=== PATIENT | male | born 1975 | race Two or more races ===

== ENCOUNTER 2017-04-23 13:54 | Emergency (ER) | payer SELFPAY | END 2017-04-23 14:37 | disposition home or self-care (01) | LOC: ER 13:54 | DX: S39.012A Strain of muscle, fascia and tendon of lower back, initial encounter (principal); X58.XXXA Exposure to other specified factors, initial encounter; Y93.89 Activity, other specified; Y92.89 Other specified places as the place of occurrence of the external cause; Y99.8 Other external cause status | CPT/HCPCS: 99283 ==

== ENCOUNTER 2018-10-10 01:04 | Emergency (ER) | payer SELFPAY ==
[~2018-10-10] VITALS: Ht 175.3 cm; Wt 111.6 kg
[~2018-10-10 01:04] MED LIST: HYDR-3164 PO; IBUP-1060 PO
[2018-10-10 01:06] VITALS: BP 160/104
[2018-10-10] MEDS ORDERED: CLIN300C8 PO (01:21)
[2018-10-10] MEDS ORDERED: cefTRIAXone IM 1 GM VIAL IM ONE (02:00)
--- NOTE | 2018-10-10 02:02 | PHYS DOC ---
Past Medical History Past Medical History: No Pertinent History Past Surgical History: No Surgical History Alcohol Use: None Drug Use: None Adult General Chief Complaint Chief Complaint: SKIN PROBLEM HPI HPI Patient is a 43 year old [M P/W RASH X THREE DAYS LEFT LEG STARTED OUT ITCHY DOESNT KNOW IF MAYBE HE IS EXPOSED TO POISON ADINA HE IS NOT SURE OVER THE THREE DAYS INCREASINGLY RED AND WARM UP TO HIS THIGH BG 96 IN ER NO PMH NO FEVER ENERGY LEVEL IS FINE JUST A LOT OF ITCHING AND MILD DULL NONRADIATING PAIN. Review of Systems Review of Systems Constitutional: Denies fever or chills [] Eyes: Denies change in visual acuity, redness, or eye pain [] HENT: Denies nasal congestion or sore throat [] Respiratory: Denies cough or shortness of breath [] Cardiovascular: No additional information not addressed in HPI [] GI: Denies abdominal pain, nausea, vomiting, bloody stools or diarrhea [] : Denies dysuria or hematuria [] Musculoskeletal: Denies back pain or joint pain [] Integument: Denies rash or skin lesions [] Neurologic: Denies headache, focal weakness or sensory changes [] Endocrine: Denies polyuria or polydipsia [] All other systems were reviewed and found to be within normal limits, except as documented in this note. Current Medications Current Medications Current Medications Medications (Trade) Dose Ordered Sig/Neida Start Time Stop Time Status Last Admin Dose Admin Ceftriaxone Sodium (Rocephin Im) 1 gm 1X ONCE 10/10/18 02:00 10/10/18 02:01 DC 10/10/18 01:40 1 GM Allergies Allergies Allergies Coded Allergies Type Severity Reaction Last Updated Verified No Known Drug Allergies 10/10/18 No Physical Exam Physical Exam Constitutional: Well developed, well nourished, no acute distress, non-toxic appearance. [] HENT: Normocephalic, atraumatic, bilateral external ears normal, oropharynx moist, no oral exudates, nose normal. [] Eyes: PERRLA, EOMI, conjunctiva normal, no discharge. [] Neck: Normal range of motion, no tenderness, supple, no stridor. [] Abdomen: Bowel sounds normal, soft, no tenderness, no masses, no pulsatile masses. [] Skin THERE IS SIG ERYTHEMA DIFFUSE FROM CALF UP TO ANTERIOR THIGH, APPEARS FAIRLY SUPERFICIAL MILD TTP NOTED, NO BULLAE NO FLUCTUANCE. DISTAL FUNCTION INTACT SCATTERED EXCORIATED SCABS NOTED ON B/L LOWER EXT, SOME RAISED PATCHES POSSIBLY C/W CONTACT DERMATITIS Back: No tenderness, no CVA tenderness. [] Extremities: No tenderness, no cyanosis, no clubbing, ROM intact, no edema. [] Neurologic: Alert and oriented X 3, normal motor function, normal sensory function, no focal deficits noted. [] Psychologic: Affect normal, judgement normal, mood normal. [] Current Patient Data Vital Signs Vital Signs Date Time Temp Pulse Resp B/P (MAP) Pulse Ox O2 Delivery O2 Flow Rate FiO2 10/10/18 01:06 98.1 64 16 160/104 (122) 99 Room Air 98.1 Lab Values Laboratory Tests Test 10/10/18 01:19 Glucose (Fingerstick) 96 mg/dL (70-99) EKG EKG [] Radiology/Procedures Radiology/Procedures [] Course & Med Decision Making Course & Med Decision Making Pertinent Labs and Imaging studies reviewed. (See chart for details) []43-year-old male with lower extremity redness suspect cellulitis does have some evidence of some excoriated scabbed over lesions that could be the site of break in skin. I think so far it is fairly superficial appearing we marked the skin blood sugar was 96 we give IM ceftriaxone and I asked him to come back in 24-48 hours should he not have improving symptoms. Prescription for clindamycin was provided as well Dragon Disclaimer Dragon Disclaimer This electronic medical record was generated, in whole or in part, using a voice recognition dictation system. Departure Departure Impression: Primary Impression: Cellulitis Disposition: 01 HOME, SELF-CARE Condition: STABLE Patient Instructions: Cellulitis, [id number] Scripts Clindamycin Hcl (CLINDAMYCIN HCL) 300 Mg Capsule 1 CAP PO TID, #30 CAP Prov: SUKUMAR GONZALEZ MD 10/10/18 SUKUMAR GONZALEZ MD Oct 10, 2018 02:02
== END 2018-10-10 02:03 | disposition home or self-care (01) ==
LOC: ER 01:04
DX: L03.116 Cellulitis of left lower limb (principal); L03.115 Cellulitis of right lower limb
CPT/HCPCS: 82962; 96372; 99283; J0696

== ENCOUNTER 2018-11-16 00:18 | Emergency (ER) | payer SELFPAY ==
[~2018-11-16] VITALS: Ht 175.3 cm; Wt 108.9 kg
[~2018-11-16 00:18] MED LIST changes: +CLIN300C8 PO
[2018-11-16 00:23] VITALS: BP 122/73
[2018-11-16] MEDS ORDERED: IPRATRPIUM/ALBUTEROL 0.5/2.5MG 3 ML NEBU. NEB ONE (00:30)
[2018-11-16] MEDS ORDERED: predniSONE 20 MG TABLET PO ONE (00:30)
[2018-11-16] MEDS ORDERED: ALBU2.5V8 IH (00:47)
[2018-11-16] MEDS ORDERED: PRED20TA PO (00:47)
--- NOTE | 2018-11-16 00:47 | PHYS DOC ---
Past Medical History Past Medical History: No Pertinent History Past Surgical History: No Surgical History Alcohol Use: None Drug Use: None Adult General Chief Complaint Chief Complaint: COUGH HPI HPI Patient is a 43-year-old male who is otherwise healthy presents with several day history of cough and congestion. He states the cough got worse tonight at work. He states he has some chest pain with coughing. His work told him he needed to go home and get evaluated by a physician so he came here. He denies any fever chills or sweats. He denies any hemoptysis. He has not been on any antibiotics and he has not taken any cough medicine at home to help with the symptoms.[] Review of Systems Review of Systems Constitutional: Denies fever or chills [] Eyes: Denies change in visual acuity, redness, or eye pain [] HENT: Denies nasal congestion or sore throat [] Respiratory: Per history of present illness[] Cardiovascular: No additional information not addressed in HPI [] GI: Denies abdominal pain, nausea, vomiting, bloody stools or diarrhea [] : Denies dysuria or hematuria [] Musculoskeletal: Denies back pain or joint pain [] Integument: Denies rash or skin lesions [] Neurologic: Denies headache, focal weakness or sensory changes [] Endocrine: Denies polyuria or polydipsia [] All other systems were reviewed and found to be within normal limits, except as documented in this note. Current Medications Current Medications Current Medications Medications (Trade) Dose Ordered Sig/Neida Start Time Stop Time Status Last Admin Dose Admin Albuterol/ Ipratropium (Duoneb) 3 ml 1X ONCE 11/16/18 00:30 11/16/18 00:32 DC 11/16/18 00:40 3 ML Prednisone (Prednisone) 60 mg 1X ONCE 11/16/18 00:30 11/16/18 00:32 DC 11/16/18 00:37 60 MG Allergies Allergies Allergies Coded Allergies Type Severity Reaction Last Updated Verified No Known Drug Allergies 10/10/18 No Physical Exam Physical Exam Constitutional: Well developed, well nourished, no acute distress, non-toxic appearance. [] HENT: Normocephalic, atraumatic, bilateral external ears normal, oropharynx moist, no oral exudates, nose normal. [] Eyes: PERRLA, EOMI, conjunctiva normal, no discharge. [] Neck: Normal range of motion, no tenderness, supple, no stridor. [] Cardiovascular:Heart rate regular rhythm, no murmur [] Lungs & Thorax: Mild apical wheezing no rales[] Abdomen: Bowel sounds normal, soft, no tenderness, no masses, no pulsatile masses. [] Skin: Warm, dry, no erythema, no rash. [] Back: No tenderness, no CVA tenderness. [] Extremities: No tenderness, no cyanosis, no clubbing, ROM intact, no edema. [] Neurologic: Alert and oriented X 3, normal motor function, normal sensory function, no focal deficits noted. [] Psychologic: Affect normal, judgement normal, mood normal. [] Current Patient Data Vital Signs Vital Signs Date Time Temp Pulse Resp B/P (MAP) Pulse Ox O2 Delivery O2 Flow Rate FiO2 11/16/18 00:38 98 Room Air 11/16/18 00:23 98.0 62 18 122/73 (89) 98.0 EKG EKG [] Interpretation Time: EKG: Normal sinus rhythm rate of [address]-T changes Radiology/Procedures Radiology/Procedures [] Course & Med Decision Making Course & Med Decision Making Pertinent Labs and Imaging studies reviewed. (See chart for details) [ED course: Evaluation reveals a healthy 43-year-old male with some bronchitis type symptoms. He was given 60 of prednisone and a DuoNeb which did help alleviate his symptoms. I believe the patient is safe for discharge home. I will start him on an albuterol metered-dose inhaler and some steroids.] Dragon Disclaimer Dragon Disclaimer This electronic medical record was generated, in whole or in part, using a voice recognition dictation system. Departure Departure Impression: Primary Impression: Bronchitis Disposition: 01 HOME, SELF-CARE Condition: IMPROVED Referrals: NO PCP (PCP) Patient Instructions: Acute Bronchitis Additional Instructions: Take medication as directed. Return to the emergency department with any new or concerning symptoms Scripts Albuterol Sulfate (PROVENTIL HFA INHALER) 6.7 Gm Hfa.aer.ad 2 PUFF IH PRN Q4HRS PRN for FOR ASTHMA, #1 INHALER 0 Refills Prov: ALLEGRA CARRENO DO 11/16/18 Prednisone (PREDNISONE) 20 Mg Tablet 3 TAB PO DAILY PRN for COUGH, #15 TAB Prov: ALLEGRA CARRENO DO 11/16/18 ALLEGRA CARRENO DO Nov 16, 2018 00:47
--- NOTE | 2018-11-16 07:15 | EKG ---
[facility] [address] [place] [address] Test Date: 2018-11-16 Test Time: 00:21:19 Pat Name: HECTOR GARCIA Department: Room: Gender: M [employer] Teacher: : 1975 Requested By: ALLEGRA CARRENO Order Number: [id number] Reading MD: Raffi Smith MD Measurements Intervals [place] Rate: 56 P: 0 WY: 146 QRS: 58 QRSD: 88 T: 14 QT: 418 QTc: 406 Interpretive Statements SINUS RHYTHM Electronically Signed On 11-16-2018 8:16:15 CDT by Raffi Smith MD
== END 2018-11-16 01:06 | disposition home or self-care (01) ==
LOC: ER 00:18
DX: J40 Bronchitis, not specified as acute or chronic (principal)
CPT/HCPCS: 93005; 94640; 99283; J7512; J7620

== ENCOUNTER 2019-04-30 14:23 | Emergency (ER) | payer OTHER ==
[~2019-04-30] VITALS: Ht 175.3 cm; Wt 95.0 kg
[~2019-04-30 14:23] MED LIST changes: +PRED20TA PO; +PROVENTIL HFA6.7 GM IH
[2019-04-30] MEDS ORDERED: ONDANSETRON PF 4 MG/2 ML VIAL. IV ONE (15:30)
[2019-04-30] MEDS ORDERED: IV NORMAL SALINE 1000ML BAG 1,000 ML IV ONE (15:30)
[2019-04-30] MEDS ORDERED: DICYCLOMINE HCL 10 MG CAPSULE PO STA (15:30)
--- NOTE | 2019-04-30 15:34 | PHYS DOC ---
Past Medical History Past Medical History: No Pertinent History Past Surgical History: No Surgical History Smoking Status: Current Some Day Smoker Alcohol Use: None Drug Use: None Adult General Chief Complaint Chief Complaint: DIARRHEA HPI HPI Patient is a 43 year old male who presents with nausea, vomiting, diarrhea that started yesterday. Patient associated symptom includes feeling hot and cold. Patient is also been having some abdominal cramping is intermittent in nature. The patient rates the cramping is 9 out of 10 in severity and crampy. Denies any additional symptoms. Complete ROS were reviewed and found to be within normal limits, except as documented in the HPI Current Medications Current Medications Current Medications Medications (Trade) Dose Ordered Sig/Neida Start Time Stop Time Status Last Admin Dose Admin Dicyclomine HCl (Bentyl) 10 mg 1X STAT 04/30/19 15:30 04/30/19 15:33 DC 04/30/19 15:53 10 MG Ondansetron HCl (Zofran) 4 mg 1X ONCE 04/30/19 15:30 04/30/19 15:33 DC 04/30/19 15:54 4 MG Sodium Chloride 1,000 ml @ 1,000 mls/hr 1X ONCE 04/30/19 15:30 04/30/19 16:29 04/30/19 15:54 1,000 MLS/HR Allergies Allergies Allergies Coded Allergies Type Severity Reaction Last Updated Verified No Known Drug Allergies 10/10/18 No Physical Exam Physical Exam Constitutional: Well developed, well nourished, no acute distress, non-toxic appearance. [] HENT: Normocephalic, atraumatic, bilateral external ears normal, oropharynx moist, no oral exudates, nose normal. [] Eyes: PERRLA, EOMI, conjunctiva normal, no discharge. [] Neck: Normal range of motion, no tenderness, supple, no stridor. [] Cardiovascular:Heart rate regular rhythm, no murmur [] Lungs & Thorax: Bilateral breath sounds clear to auscultation [] Abdomen: Bowel sounds normal, soft, no tenderness, no masses, no pulsatile masses. [] Skin: Warm, dry, no erythema, no rash. [] Neurologic: Alert and oriented X 3, normal motor function, normal sensory function, no focal deficits noted. [] Psychologic: Affect normal, judgement normal, mood normal. [] Current Patient Data Vital Signs Vital Signs Date Time Temp Pulse Resp B/P (MAP) Pulse Ox O2 Delivery O2 Flow Rate FiO2 04/30/19 15:17 97.8 65 14 132/77 (95) 100 Room Air 97.8 Lab Values Laboratory Tests Test 04/30/19 15:35 White Blood Count 5.1 x10^3/uL (4.0-11.0) Red Blood Count 5.52 x10^6/uL (4.30-5.70) Hemoglobin 16.2 g/dL (13.0-17.5) Hematocrit 47.3 % (39.0-53.0) Mean Corpuscular Volume 86 fL (79-100) Mean Corpuscular Hemoglobin 29 pg (25-35) Mean Corpuscular Hemoglobin Concent 34 g/dL (31-37) Red Cell Distribution Width 13.1 % (11.5-14.5) Platelet Count 209 x10^3/uL (140-400) Neutrophils (%) (Auto) 57 % (31-73) Lymphocytes (%) (Auto) 26 % (24-48) Monocytes (%) (Auto) 14 % (0-9) H Eosinophils (%) (Auto) 2 % (0-3) Basophils (%) (Auto) 1 % (0-3) Neutrophils # (Auto) 2.9 x10^3/uL (1.8-7.7) Lymphocytes # (Auto) 1.3 x10^3/uL (1.0-4.8) Monocytes # (Auto) 0.7 x10^3/uL (0.0-1.1) Eosinophils # (Auto) 0.1 x10^3/uL (0.0-0.7) Basophils # (Auto) 0.0 x10^3/uL (0.0-0.2) Urine Collection Type Unknown Urine Color Yellow Urine Clarity Clear Urine pH 6.0 Urine Specific [place] >=1.030 Urine Protein Negative mg/dL (NEG-TRACE) Urine Glucose (UA) Negative mg/dL (NEG) Urine Ketones (Stick) Negative mg/dL (NEG) Urine Blood Small (NEG) Urine Nitrite Negative (NEG) Urine Bilirubin Negative (NEG) Urine Urobilinogen Dipstick 1.0 mg/dL (0.2 mg/dL) Urine Leukocyte Esterase Negative (NEG) Urine RBC 1-2 /HPF (0-2) Urine WBC Occ /HPF (0-4) Urine Squamous Epithelial Cells Few /LPF Urine Bacteria 0 /HPF (0-FEW) Urine Mucus Marked /LPF Sodium Level 139 mmol/L (136-145) Potassium Level 3.6 mmol/L (3.5-5.1) Chloride Level 103 mmol/L (98-107) Carbon Dioxide Level 28 mmol/L (21-32) Anion Gap 8 (6-14) Blood Urea Nitrogen 17 mg/dL (8-26) Creatinine 1.2 mg/dL (0.7-1.3) Estimated GFR (Cockcroft-Gault) 66.4 BUN/Creatinine Ratio 14 (6-20) Glucose Level 89 mg/dL (70-99) Calcium Level 8.3 mg/dL (8.5-10.1) L Total Bilirubin 0.3 mg/dL (0.2-1.0) Aspartate Amino Transferase (AST) 22 U/L (15-37) Alanine Aminotransferase (ALT) 29 U/L (16-63) Alkaline Phosphatase 67 U/L (46-116) Total Protein 7.4 g/dL (6.4-8.2) Albumin 3.6 g/dL (3.4-5.0) Albumin/Globulin Ratio 0.9 (1.0-1.7) L Lipase 89 U/L (73-393) Laboratory Tests 04/30/19 15:35 Laboratory Tests 04/30/19 15:35 EKG EKG [] Radiology/Procedures Radiology/Procedures [] Course & Med Decision Making Course & Med Decision Making Pertinent Labs and Imaging studies reviewed. (See chart for details) Will get labs, and give supportive care. The patient appears like he likely has been suffering from gastroenteritis. Will d/c home with Marcos and Mireya. Dragon Disclaimer Dragon Disclaimer This electronic medical record was generated, in whole or in part, using a voice recognition dictation system. Departure Departure Impression: Primary Impression: Nausea & vomiting Additional Impression: Diarrhea in adult patient Disposition: HOME, SELF-CARE Condition: STABLE Referrals: NO PCP (PCP) Patient Instructions: Viral Gastroenteritis Additional Instructions: Thank you for visiting [facility]. We appreciate you trusting us with your care. If any additional problems come up don't hesitate to return to visit us. Please follow up with your primary care provider so they can plan additional care if needed and know about the problem that you had. If symptoms worsen come back to the Emergency Department. Any concerning symptoms that start such as chest pain, shortness of air, weakness or numbness on one side of the body, running high fevers or any other concerning symptoms return to the ER. Scripts Ondansetron (ONDANSETRON ODT) 4 Mg Tab.rapdis 1 TAB PO PRN Q6-8HRS PRN for NAUSEA, #20 TAB Prov: KEO READ APRN 04/30/19 Dicyclomine Hcl (DICYCLOMINE HCL) 10 Mg Capsule 1 CAP PO PRN Q6HRS PRN for PAIN, #20 CAP 0 Refills Prov: KEO READ APRN 04/30/19 Problem Qualifiers Primary Impression: Nausea & vomiting Vomiting type: unspecified Vomiting Intractability: unspecified Qualified Codes: R11.2 - Nausea with vomiting, unspecified KEO READ APRN Apr 30, 2019 15:33
[2019-04-30 15:55] LABS: BASO % 1 % (0-3); EOS # 0.1 x10^3/uL (0.0-0.7); EOS % 2 % (0-3); HEMATOCRIT 47.3 % (39.0-53.0); HEMOGLOBIN 16.2 g/dL (13.0-17.5); LYMPH # 1.3 x10^3/uL (1.0-4.8); LYMPH % 26 % (24-48); MEAN CORPUSCULAR HEMOGLOBIN 29 pg (25-35); MEAN CORPUSCULAR HGB CONC 34 g/dL (31-37); MEAN CORPUSCULAR VOLUME 86 fL (79-100); MONO # 0.7 x10^3/uL (0.0-1.1); MONO % 14 % (0-9); NEUT # 2.9 x10^3/uL (1.8-7.7); NEUT % 57 % (31-73); PLATELET COUNT 209 x10^3/uL (140-400); RED BLOOD COUNT 5.52 x10^6/uL (4.30-5.70); RED CELL DISTRIBUTION WIDTH 13.1 % (11.5-14.5); WHITE BLOOD COUNT 5.1 x10^3/uL (4.0-11.0)
[2019-04-30 15:56] LABS: BILIRUBIN,URINE NEGATIVE (NEG); CLARITY,URINE CLEAR; COLOR,URINE YELLOW; NITRITE,URINE NEGATIVE (NEG); PROTEIN,URINE NEGATIVE (NEG-TRACE)
[2019-04-30 16:03] LABS: CALCIUM 8.3 mg/dL (8.5-10.1); CREATININE 1.2 mg/dL (0.7-1.3); GFR 66.4; POTASSIUM 3.6 mmol/L (3.5-5.1)
[2019-04-30 16:06] LABS: BACTERIA,URINE 0 /HPF (0-FEW); SQUAMOUS EPITHELIAL CELL,UR FEW /LPF; WBC,URINE OCC /HPF (0-4)
[2019-04-30 16:09] LABS: ALBUMIN 3.6 g/dL (3.4-5.0); ALBUMIN/GLOBULIN RATIO 0.9 (1.0-1.7); TOTAL BILIRUBIN 0.3 mg/dL (0.2-1.0); TOTAL PROTEIN 7.4 g/dL (6.4-8.2)
[2019-04-30] MEDS ORDERED: DICY10CA3 PO (16:15)
[2019-04-30] MEDS ORDERED: ONDA4TAB12 PO (16:15)
[2019-04-30 16:43] VITALS: BP 124/60
== END 2019-04-30 16:44 | disposition home or self-care (01) ==
LOC: ER 14:23
DX: R11.2 Nausea with vomiting, unspecified (principal); R19.7 Diarrhea, unspecified; R10.9 Unspecified abdominal pain; F17.200 Nicotine dependence, unspecified, uncomplicated
CPT/HCPCS: 36415; 80053; 81001; 83690; 85025; 96361; 96374; 99284; J2405; J7030

== ENCOUNTER 2019-05-25 18:49 | Emergency (ER) | payer OTHER ==
[~2019-05-25] VITALS: Ht 175.3 cm; Wt 95.5 kg
[~2019-05-25 18:49] MED LIST changes: +DICY10CA3 PO; +ONDA4TAB12 PO
[2019-05-25 19:25] VITALS: BP 132/75
[2019-05-25] MEDS ORDERED: AMOX1TAB61 PO (20:25)
--- NOTE | 2019-05-25 20:25 | PHYS DOC ---
Past Medical History Past Medical History: No Pertinent History Past Surgical History: No Surgical History Smoking Status: Never Smoker Alcohol Use: None Drug Use: None Adult General Chief Complaint Chief Complaint: ABSCESS HPI HPI Patient is a 43 year old male who presents with rectal pain that started yest erday. The patient denies any fever. The patient reports his pain is 8 out of 10 in severity and sharp. Patient states it hurts when he puts pressure on to the area. Patient reports that he has a boil on his rectum. Complete ROS were reviewed and found to be within normal limits, except as documented in the [facility] Allergies Allergies Allergies Coded Allergies Type Severity Reaction Last Updated Verified No Known Drug Allergies 10/10/18 No Physical Exam Physical Exam Constitutional: Well developed, well nourished, no acute distress, non-toxic appearance. [] HENT: Normocephalic, atraumatic, bilateral external ears normal, oropharynx moist, no oral exudates, nose normal. [] Skin: Rectum has a visible abscess that disappears in the anus and is draining fluid. Neurologic: Alert and oriented X 3, normal motor function, normal sensory function, no focal deficits noted. [] Psychologic: Affect normal, judgement normal, mood normal. [] Current Patient Data Vital Signs Vital Signs Date Time Temp Pulse Resp B/P (MAP) Pulse Ox O2 Delivery O2 Flow Rate FiO2 05/25/19 19:25 98.2 77 16 132/75 (94) 97 Room Air 98.2 EKG EKG [] Radiology/Procedures Radiology/Procedures [] Course & Med Decision Making Course & Med Decision Making Pertinent Labs and Imaging studies reviewed. (See chart for details) Vitals are stable. Patient is a-febrile. Abscess is not a candidate for I/D in ER due to location. Is already draining. Will refer to Gen Surgery and place on antibiotics. Dragon Disclaimer Dragon Disclaimer This electronic medical record was generated, in whole or in part, using a voice recognition dictation system. Departure Departure Impression: Primary Impression: Perianal abscess Disposition: 01 HOME, SELF-CARE Condition: STABLE Referrals: NO PCP (PCP) FRANTZ CARRASCO MD Patient Instructions: Leticia-Rectal Abscess Additional Instructions: Thank you for visiting [facility]. We appreciate you trusting us with your care. If any additional problems come up don't hesitate to return to visit us. Please follow up with your primary care provider so they can plan additional care if needed and know about the problem that you had. If symptoms worsen come back to the Emergency Department. Any concerning symptoms that start such as chest pain, shortness of air, weakness or numbness on one side of the body, running high fevers or any other concerning symptoms return to the ER. You have been prescribed an antibiotic today to help fight your infection. Please take all of the antibiotic as directed. If after 48 hours the infection is not improving, please return for more care. If the infection worsens, return to ER for additional care. Scripts Amoxicillin/Potassium Clav (AUGMENTIN 875-125 TABLET) 1 Each Tablet 1 TAB PO BID for 10 Days, #20 TAB 0 Refills Prov: KEO READ APRN 05/25/19 KEO READ APRN May 25, 2019 20:25
== END 2019-05-25 20:40 | disposition home or self-care (01) ==
LOC: ER 18:49
DX: K61.0 Anal abscess (principal)
CPT/HCPCS: 99283

== ENCOUNTER 2019-08-18 23:25 | Emergency (ER) | payer OTHER ==
[~2019-08-18] VITALS: Ht 175.3 cm; Wt 107.0 kg
[~2019-08-18 23:25] MED LIST changes: +AMOX1TAB61 PO
[2019-08-18 23:33] VITALS: BP 116/87
[2019-08-19] MEDS ORDERED: HYDROcodone/APAP 7.5/325MG 1 TAB TABLET PO ONE (00:30)
[2019-08-19] MEDS ORDERED: HYDR-3164 PO (01:15)
[2019-08-19] MEDS ORDERED: DICL50TA4 PO (01:15)
--- NOTE | 2019-08-19 01:15 | PHYS DOC ---
Past Medical History Past Medical History: No Pertinent History Past Surgical History: No Surgical History Smoking Status: Never Smoker Alcohol Use: None Drug Use: None General Adult EDM: Chief Complaint: RIB PAIN HPI: HPI: Patient is a 43 year old male who presents with complaint of left rib pain. Patient had been out playing basketball and another player ran into his chest with that shoulder. Patient states that he now has pain in his lower ribs. He states that it is painful to breathe. He denies any nausea or vomiting. Patient states that injury occurred about an hour prior to arrival. [] Review of Systems: Review of Systems: Constitutional: Denies fever or chills. [] Respiratory: Denies cough or shortness of breath. [] Cardiovascular: Complains of left-sided chest wall pain. [] GI: Denies abdominal pain, nausea, vomiting or diarrhea. [] Neurologic: Denies headache, focal weakness or sensory changes. [] Heart Score: Risk Factors: Risk Factors: DM, Current or recent (<one month) smoker, HTN, HLP, family hi story of CAD, obesity. Risk Scores: Score 0 - 3: 2.5% MACE over next 6 weeks - Discharge Home Score 4 - 6: 20.3% MACE over next 6 weeks - Admit for Clinical Observation Score 7 - 10: 72.7% MACE over next 6 weeks - Early Invasive Strategies Current Medications: Current Medications Medications (Trade) Dose Ordered Sig/[facility] Start Time Stop Time Status Last Admin Dose Admin Acetaminophen/ Hydrocodone Bitart (Lortab 7.5/325) 1 tab 1X ONCE 08/19/19 00:30 08/19/19 00:31 DC 08/19/19 00:52 1 TAB Allergies: Allergies: Allergies Coded Allergies Type Severity Reaction Last Updated Verified No Known Drug Allergies 10/10/18 No Physical Exam: PE: Constitutional: Well developed, well nourished, no acute distress, non-toxic appearance. [] Neck: Normal range of motion, no tenderness, supple, no stridor. [] Cardiovascular: Regular rate and rhythm. There is reproducible tenderness along the left-sided lower anterior and anterior lateral rib margin [] Lungs & Thorax: Bilateral breath sounds clear to auscultation [] Abdomen: Bowel sounds normal, soft, no tenderness. [] Extremities: No tenderness, no cyanosis, no clubbing, ROM intact, no edema. [] Current Patient Data: Vital Signs: Vital Signs Date Time Temp Pulse Resp B/P (MAP) Pulse Ox O2 Delivery O2 Flow Rate FiO2 08/19/19 00:52 20 97 Room Air 08/18/19 23:33 98.2 80 116/87 (97) 98.2 EKG: EKG: [] Radiology/Procedures: Radiology/Procedures: [] Course & Med Decision Making: Course & Med Decision Making Pertinent Labs and Imaging studies reviewed. (See chart for details) [] Dragon Disclaimer: Dragon Disclaimer: This electronic medical record was generated, in whole or in part, using a voice recognition dictation system. Departure Departure Impression: Primary Impression: Contusion of rib on left side Qualified Codes: S20.212A - Contusion of left front wall of thorax, initial encounter Disposition: HOME, SELF-CARE Condition: STABLE Referrals: NO PCP (PCP) Patient Instructions: Rib Contusion Scripts Hydrocodone/Apap 5-325 (NORCO 5-325 TABLET) 1 Each Tablet 1-2 EACH PO PRN Q6HRS PRN for PAIN, #15 as needed for pain Prov: BRITTA SKINNER Jr. DO 08/19/19 Diclofenac Sodium (DICLOFENAC SODIUM) 50 Mg Tablet. 1 TAB PO BID PRN for PAIN, #20 TAB Prov: BRITTA SKINNER Jr. DO 08/19/19 BRITTA SKINNER Jr. DO August 19, 2019 01:15
--- NOTE | 2019-08-19 01:21 | RAD ---
EXAM: Frontal chest with 3 view left rib series. HISTORY: Left rib pain after injury. COMPARISON: None. FINDINGS: There are no displaced left rib fractures. There is no pneumothorax or pleural effusion. The there are no confluent infiltrates. The heart is not enlarged. IMPRESSION: 1. No displaced left rib fractures. Electronically signed by: Donya Quinn MD (08/19/2019 1:18 AM) [facility]
== END 2019-08-19 01:23 | disposition home or self-care (01) ==
LOC: ER 23:25
DX: S20.212A Contusion of left front wall of thorax, initial encounter (principal); W21.05XA Struck by basketball, initial encounter; Y93.89 Activity, other specified; Y92.89 Other specified places as the place of occurrence of the external cause; Y99.8 Other external cause status
CPT/HCPCS: 71101; 99283

== ENCOUNTER 2019-08-21 14:29 | Emergency (ER) | payer OTHER ==
[~2019-08-21 14:29] MED LIST changes: +DICL50TA4 PO
== END 2019-08-21 15:43 | disposition left against medical advice (07) ==
LOC: ER 14:29
DX: R07.81 Pleurodynia (principal); Z53.21 Procedure and treatment not carried out due to patient leaving prior to being seen by health care provider

== ENCOUNTER 2019-10-06 14:48 | Emergency (ER) | payer OTHER ==
[~2019-10-06] VITALS: Ht 175.3 cm; Wt 101.6 kg
[2019-10-06] MEDS ORDERED: FLUORESCEIN OPHTH TEST STRIP. OU ONE (17:00)
[2019-10-06] MEDS ORDERED: TETRACAINE 0.5% OPHTH SOLUTION 4ML BOTTLE. OS ONE (17:00)
[2019-10-06] MEDS ORDERED: ERYT1OIN6 OP (17:30)
--- NOTE | 2019-10-06 17:31 | PHYS DOC ---
Past Medical History Past Medical History: No Pertinent History Past Surgical History: No Surgical History Smoking Status: Never Smoker Alcohol Use: None Drug Use: None General Adult EDM: Chief Complaint: FOREIGN BODY/EYES HPI: HPI: Patient is a 44 year old male who presents with works for [employer] and when he was putting together a box a bag of sand was open and when he put the stand down into the box stomach came up and got into his left eye. He states that he rinsed out his eye with water at work. He states that it continues to hurt. He states that he can see out of the eye just fine. The left eye sclera is reddened and around the eye is reddened and 1+ swelling. Patient rates his pain a 8 out of 10. He states it is a burning itching pain. Patient states when he looks around with his eye it does not hurt. Review of Systems: Review of Systems: Constitutional: Denies fever or chills. [] Eyes: Denies change in visual acuity. Left eye redness and pain.[] HENT: Denies nasal congestion or sore throat. [] Respiratory: Denies cough or shortness of breath. [] Cardiovascular: Denies chest pain or edema. [] GI: Denies abdominal pain, nausea, vomiting, bloody stools or diarrhea. [] : Denies dysuria. [] Musculoskeletal: Denies back pain or joint pain. [] Integument: Denies rash. [] Neurologic: Denies headache, focal weakness or sensory changes. [] Endocrine: Denies polyuria or polydipsia. [] Lymphatic: Denies swollen glands. [] Psychiatric: Denies depression or anxiety. [] Heart Score: Risk Factors: Risk Factors: DM, Current or recent (<one month) smoker, HTN, HLP, family history of CAD, obesity. Risk Scores: Score 0 - 3: 2.5% MACE over next 6 weeks - Discharge Home Score 4 - 6: 20.3% MACE over next 6 weeks - Admit for Clinical Observation Score 7 - 10: 72.7% MACE over next 6 weeks - Early Invasive Strategies Current Medications: Current Medications Medications (Trade) Dose Ordered Sig/Neida Start Time Stop Time Status Last Admin Dose Admin Fluorescein Sodium (Ful-Magi) 2 strip 1X ONCE 10/06/19 17:00 10/06/19 17:01 DC 10/06/19 17:02 1 STRIP Tetracaine HCl (Tetracaine) 1 drop 1X ONCE 10/06/19 17:00 10/06/19 17:01 DC 10/06/19 17:02 1 DROP Allergies: Allergies: Allergies Coded Allergies Type Severity Reaction Last Updated Verified No Known Drug Allergies 10/10/18 No Physical Exam: PE: Constitutional: Well developed, well nourished, no acute distress, non-toxic appearance. [] HENT: Normocephalic, atraumatic, bilateral external ears normal, oropharynx moist, no oral exudates, nose normal. [] Eyes: PERRLA, EOMI, conjunctiva red, no discharge. [] Neck: Normal range of motion, no tenderness, supple, no stridor. [] Cardiovascular:Heart rate regular rhythm, no murmur [] Lungs & Thorax: Bilateral breath sounds clear to auscultation [] Abdomen: Bowel sounds normal, soft, no tenderness, no masses, no pulsatile masses. [] Skin: Warm, dry, no erythema, no rash. [] Back: No tenderness, no CVA tenderness. [] Extremities: No tenderness, no cyanosis, no clubbing, ROM intact, no edema. [] Neurologic: Alert and oriented X 3, normal motor function, normal sensory f unction, no focal deficits noted. [] Psychologic: Affect normal, judgement normal, mood normal. [] Current Patient Data: Vital Signs: Vital Signs Date Time Temp Pulse Resp B/P (MAP) Pulse Ox O2 Delivery O2 Flow Rate FiO2 10/06/19 15:32 98.3 60 14 103/71 (82) 100 Room Air 98.3 EKG: EKG: [] Radiology/Procedures: Radiology/Procedures: [] Course & Med Decision Making: Course & Med Decision Making Pertinent Labs and Imaging studies reviewed. (See chart for details) Alert and oriented. Speaks in full complete sentences. Patient will be given erythromycin ointment for his eye. He is to follow-up with an eye doctor soon as possible. . Eye Exam Visual accuity: Eye exam: PERRL, Extraocular muscles intact. No signs of ruptured globe. Sclera reddened. Red reflex present. Foreign body: No foreign bodies seen with examination or with lid flip exam. Mani-pen: N/A Fluorescein test: Inner sclera corneal abrasion. Anesthetic: Tetracaine [] Scooteron Disclaimer: Danish Disclaimer: This electronic medical record was generated, in whole or in part, using a voice recognition dictation system. Departure Departure Impression: Primary Impression: Corneal abrasion Qualified Codes: S05.02XA - Injury of conjunctiva and corneal abrasion without foreign body, left eye, initial encounter Disposition: HOME, SELF-CARE Condition: STABLE Referrals: NO PCP (PCP) Dima BENNETT MD Patient Instructions: Eye - Corneal Abrasion Additional Instructions: Follow-up with an eye doctor soon as possible. Use the eye antibiotic as prescribed. Try not to rub the eye. Scripts Erythromycin Base (Erythromycin) 1 Gm Oint...g. 1 GM OP QID for 10 Days, #1 MISC Prov: KHOA ALVARADO APRN 10/06/19 Justicifation of Admission Dx: Justifications for Admission: Justification of Admission Dx: N/A KHOA ALVARADO APRN Oct 06, 2019 17:31
[2019-10-06 18:19] VITALS: BP 114/74
== END 2019-10-06 18:19 | disposition home or self-care (01) ==
LOC: ER 14:48
DX: S05.02XA Injury of conjunctiva and corneal abrasion without foreign body, left eye, initial encounter (principal); X58.XXXA Exposure to other specified factors, initial encounter; Y93.89 Activity, other specified; Y92.89 Other specified places as the place of occurrence of the external cause; Y99.8 Other external cause status
CPT/HCPCS: 99283